=== PATIENT | female | born 1950 | race Caucasian/White ===

== ENCOUNTER 2021-06-19 13:04 | Outpatient (CLI) | payer MEDICARE, BC | END 2021-06-19 23:59 | disposition home or self-care (01) | LOC: RAD 13:04 | DX: R13.14 Dysphagia, pharyngoesophageal phase (principal); K21.9 Gastro-esophageal reflux disease without esophagitis; Z79.899 Other long term (current) drug therapy | CPT/HCPCS: 74230 ==

== ENCOUNTER 2025-04-18 09:38 | Outpatient (CLI) | payer MEDICARE, OTHER ==
[~2025-04-18 09:38] MED LIST: AMLO2.5T2 PO; APIX5TAB3 PO; MECL-226 PO; OLME40TA18 PO; PRED5TAB PO; PSEU-259 PO; ROSU20TA98 PO
--- NOTE | 2025-04-18 17:42 | CARDIOLOGY REPORT ---
APPROVED REPORT EXAM: Comprehensive 2D, Doppler, and color-flow Echocardiogram with saline. Patient Location: OUT-PATIENT Blood Pressure: 148/97 mmHg Heart Rate: 68 bpm Rhythm: SINUS Indications MURMUR SYNCOPE PALPITATIONS EVALUATE PFO - IV start: Kenneth Hernandez RN HYPERTENSION Chef Under: NONE Previous echo: NONE 2D Dimensions RVDd 2.6 cm LA Major 6.4 cm LA Minor 3.8 cm RA Major 5.7 cm RA Minor 3.2 cm LVOT Diameter 1.91 (1.8-2.4cm) M-Mode Dimensions Left Atrium(MM) 3.76 (2.5-4.0cm) IVSd 0.89 (0.7-1.1cm) LVDd 5.29 (4.0-5.6cm) Aortic Root 2.89 (2.2-3.7cm) PWd 0.87 (0.7-1.1cm) Aortic Cusp Exc 2.16 (1.5-2.0cm) IVSs 1.26 cm MV EPSS 0.4 (<0.5cm) LVDs 3.42 (2.0-3.8cm) FS (%) 35 % PWs 1.22 cm ESV(Teich) 48.1 ml LVEF(%) 64 (>50%) Aortic Valve AoV Peak Josue. 129.0 cm/s AoV VTI 31.7 cm AO Peak GR. 6.5 mmHg AO Mean GR. 4 mmHg LVOT VTI 22.43 cm LVOT Peak Josue. 94.3 cm/s CARMEN (VMAX) 2.09 cm2 CARMEN (VTI) 2.02 cm2 Mitral Valve MV E Velocity 89.3 cm/s MV DECEL TIME 168 ms MV A Velocity 84.4 cm/s MV PHT 66 ms E/A Ratio 1.1 MVA (PHT) 3.31 cm2 Tricuspid Valve TR P. Velocity 282 cm/s RAP ESTIMATE 10 mmHg TR Peak Gr. 32 mmHg RVSP 42 mmHg Pulmonary Vein S2 Velocity 85.68 cm/s PVa Duration 106 msec LEFT VENTRICLE Normal LV size and function. Mild concentric hypertrophy. Overall LVEF is 65%.GLS - 15 %. RIGHT VENTRICLE RV is normal size and function. Estimated PA systolic pressure of 42 mm of mercury. ATRIA Left atrium is moderately dilated. Right atrium is mildly dilated. Saline study was performed with 2 IV injections of 10 ccs of agitated normal saline at rest. Negative saline study for right to left flow. AORTIC VALVE Trileaflet AV appears minimally sclerotic without stenosis or insufficiency. MITRAL VALVE Normal MV annular calcification without stenosis. Trace regurgitation. TRICUSPID VALVE TV appears structurally normal with trace regurgitation. PULMONIC VALVE Normal PV without stenosis, physiologic insufficiency. GREAT VESSELS Aortic root is normal in size. Normal appearing arch with normal flow velocities. Ascending and dscending aorta are normal in size. The IVC is normal in size and collapses >50% with inspiration. PERICARDIUM Normal pericardium. No effusion. Other Information Study Quality: Adequate Conclusion Overall LVEF is 65%.GLS - 15 %. Normal LV size and function. Mild concentric hypertrophy. RV is normal size and function. Estimated PA systolic pressure of 42 mm of mercury. Trileaflet AV appears minimally sclerotic without stenosis or insufficiency. Normal MV annular calcification without stenosis. Trace regurgitation. TV appears structurally normal with trace regurgitation. Normal PV without stenosis, physiologic insufficiency. Normal pericardium. No effusion.
== END 2025-04-18 23:59 | disposition home or self-care (01) ==
LOC: CARD DIAG 09:38
PROVIDERS: ATTEND Nurse Practitioner Adult Health
DX: I08.8 Other rheumatic multiple valve diseases (principal); R01.1 Cardiac murmur, unspecified; R00.2 Palpitations
CPT/HCPCS: 93306